=== PATIENT | male | born 1985 | race Caucasian/White ===

== ENCOUNTER 2017-03-11 07:00 | Outpatient (RCR) | payer OTHER | END 2017-03-12 | disposition home or self-care (01) | LOC: PTY 07:00 | DX: M54.2 Cervicalgia (principal); M54.5 Low back pain; M25.512 Pain in left shoulder ==

== ENCOUNTER 2017-04-08 07:00 | Outpatient (RCR) | payer OTHER | END 2017-04-11 | disposition home or self-care (01) | LOC: PTY 07:00 | DX: M54.2 Cervicalgia (principal); M54.5 Low back pain; M25.512 Pain in left shoulder ==

== ENCOUNTER 2017-05-06 07:00 | Outpatient (RCR) | payer OTHER | END 2017-05-12 | disposition home or self-care (01) | LOC: PTY 07:00 | DX: M54.2 Cervicalgia (principal); M54.5 Low back pain; M25.512 Pain in left shoulder ==

== ENCOUNTER 2017-06-24 08:00 | Outpatient (RCR) | payer OTHER | END 2017-07-12 | disposition home or self-care (01) | LOC: PTY 08:00 | DX: M54.2 Cervicalgia (principal); M54.5 Low back pain; M25.512 Pain in left shoulder ==